=== PATIENT | female | born 1955 | race Caucasian/White ===

== ENCOUNTER 2025-05-29 12:46 | Emergency (ER) | payer MEDICARE, SELFPAY ==
--- OUTSIDE RECORDS SUMMARY | 2004-10-19 05:00 | XMS_ITS | Continuity of Care Document ---
Author Organization [facility] Address [address] [place] [address] [place] [address] Phone Care Team Providers Care Research Compliance Specialist Name Role Phone Uziel Tyson MD Unavailable Unavailable Advance Directives Directive Yes / No Effective Date File Name No Information Encounters Encounter Description Practice Location Reason(s) For Visit Diagnoses Date Provider Providers Copied on Encounter [facility], [address], [place], [place], [id number], [place] tel:[phone] [facility] [place] No Information Mar-0 8-200 5 Marbella Triplett. [address] [facility], [address], [place], [place], [id number], [place]. tel:[phone] Family History Family Member Type Diagnosis Age At Onset No Information Payers Payer name Insurance type Covered constitution party ID Authoriza tion(s) No Information Social History Type Description Quantity Date Captured Comments Sex Female Smoking Status No Information Chief Complaint And Reason For Visit No Information Reason For Referral Reason For Referral No Information History Of Present Illness Encounter Date Complaint History Of Prese nt Illness No Information Functional Status Date Functional Assessmen t No Information Instructions Date Instruction Additional Infor mation No Information Assessments Type Assessment Date No Information Patient Care Teams Name Effective Dates (start - stop) Status Members No Information
--- OUTSIDE RECORDS SUMMARY | 2004-10-19 05:00 | XMS_ITS | Continuity of Care Document ---
Author Organization [facility] Address [address] [place] [address] [place] [address] Phone Care Team Providers Care Molding Room Supervisor Name Role Phone Uziel Tyson MD Unavailable Unavailable Advance Directives Directive Yes / No Effective Date File Name No Information Encounters Encounter Description Practice Location Reason(s) For Visit Diagnoses Date Provider Providers Copied on Encounter [facility], [address], [place], [place], [id number], [place] tel:[phone] [facility] [place] No Information Mar-0 8-200 5 Marbella Triplett. [address] [facility], [address], [place], [place], [id number], [place]. tel:[phone] Family History Family Member Type Diagnosis Age At Onset No Information Payers Payer name Insurance type Covered libertarian ID Authoriza tion(s) No Information Social History [...]
--- OUTSIDE RECORDS SUMMARY | 2025-03-10 19:00 | XMS_ITS | Continuity of Care Document ---
Author Organization [facility] Address [address] [place] [address] Phone Care Team Providers Care Geological Sample Tester Name Role Phone Holland BURKS, [facility], Arik Unavailable Unavail able Procedures Procedure Date TTE W/DOPPLER, COMPLETE ELECTROCARDIOGRAM REPORT ELECTROCARDIOGRAM REPORT Advance Directives Directive Yes / No Effective Date File Name No Information Encounters Encounter Description Practice Location Reason(s) For Visit Diagnoses Date Provider Providers Copied on Encounter [facility], [address] [place] [address], [id number], tel:[phone] [facility] No Information Holland Elise. [address] [place] [address], [id number], . tel:[phone] Referring Provider: Arik Lino, [address] [place] [address], [address]. tel:[phone] [facility], [address] [place] [address], [id number], tel:[phone] [facility] No Information Jackson Villaseñor. [address] [place] [address], [id number], . tel:[phone] Referring Provider: Kasi Paz, [address] [place] [address], [address]. tel:[phone] [facility], [address] [place] [address] [place], [id number], tel:[phone] [facility] No Information Whitney Perez. [address] , [place], [place], [id number], . tel:[phone] Referring Provider: Chris Olson, [address] , [place], [address]. tel:[phone] Family History Family Member Type Diagnosis Age At Onset No Information Payers Payer name Insurance type Covered republican ID Authoriza tion(s) HUMANA CI [id number] [facility] [id number] Social History Type Description Quantity Date Captured [...]
--- OUTSIDE RECORDS SUMMARY | 2025-03-10 19:00 | XMS_ITS | Continuity of Care Document ---
Author Organization [facility] Address [address] [place] [phone] Phone Care Team Providers Care Jar Capper Name Role Phone Holland BURKS, [facility], Arik Unavailable Unavail able Procedures Procedure Date TTE W/DOPPLER, COMPLETE ELECTROCARDIOGRAM REPORT ELECTROCARDIOGRAM REPORT Advance Directives Directive Yes / No Effective Date File Name No Information Encounters Encounter Description Practice Location Reason(s) For Visit Diagnoses Date Provider Providers Copied on Encounter [facility], [address] [place] [address], [id number], tel:[phone] [facility] No Information Holland Elise. [address] [place] [address], [id number], . tel:[phone] Referring Provider: Arik Lino, [address] [place] [address], [address]. tel:[phone] [facility], [address] [place] [address], [id number], tel:[phone] [facility] No Information Jackson Villaseñor. [address] [place] [address], [id number], . tel:[phone] Referring Provider: Kasi Paz, [address] [place] [address], [address]. tel:[phone] [facility], [address] [place] [address] [place], [id number], tel:[phone] [facility] No Information Whitney Perez. [address] , [place], [place], [id number], . tel:[phone] Referring Provider: Chris Olson, [address] , [place], [address]. tel:[phone] Family History Family Member Type Diagnosis Age At Onset No Information Payers Payer name Insurance type Covered democrat ID Authoriza tion(s) HUMANA CI [id number] [facility] [id number] Social History Type Description Quantity Date Captured [...]
[2025-05-29 13:08] VITALS: BP 115/88; PULSE 84; RESP 15; TEMP 37.1; O2SAT 97
--- OUTSIDE RECORDS SUMMARY | 2025-05-29 14:19 | XMS_ITS | Clinical Summary ---
Author Organization [facility] Address [facility] [place] [address] Care Team Providers Care Sofa Back Upholsterer Name Role Phone David Richardson DO Primary Care Provider + Social History Tobacco Use Types Packs/Day Years Used Date Smoking Tobacco: Never Assessed Comments Unknown Sex and Gender Information Value Date Recorded Sex Assigned at Not on file Legal Sex Female 8:22 PM CDT Gender Identity Not on file Sexual Orientation Not on file Plan of Treatment Health Maintenance Due Date Last Done Comments Colorectal Cancer Screening Colonoscopy (10 Years) 1956 Hepatitis C 1974 DTaP, Tdap and Td Vaccines ( 1 - Tdap) 11/19/1975 Mammogram Screening 1996 Pneumococcal Vaccine: 50+ Ye ars (1 of 1 - PCV) 2006 Zoster Vaccines (1 of 2) 2006 Dexa Scan (General) 2021 COVID-19 Vaccine ( - 2023-2 5 season) 2025 Influenza Adult (#1) 2025 RSV Immunization or 60+ Years (1 - 1-dose 75+ series) 11/19/2031 Meningococcal B Vaccine Aged Out No l onger eligible based on patient's age to complete this topic Meningococcal Vaccine Aged Out No betzy keith eligible based on patient's age to complete this topic RSV Immunizations Under 20 Months Aged Out No longer eligible based on patient's age to complete this topic Care Teams Sofa Back Upholsterer Relationship Specialty Start Date End Date David Richardson DO [address] [place] [address] PCP - General FAMILY PRACTICE 9/19/23
--- OUTSIDE RECORDS SUMMARY | 2025-05-29 14:19 | XMS_ITS | Patient Health Record ---
Author Organization [facility] Address [address] [place] [address] Care Team Providers Care Astrophysics Professor Name Role Phone Scott Boyd Primary Care Provider Allergies Allergen (clinical drug ingredient) Drug/Non Drug Allergy documented on EMR Reaction Allergy Type Onset Date Status ivp dye (uncoded) hives Allergy Ac tive Reason For Referral No Information Medications Medication SIG (Take, Route, Frequency, Duration) Notes Start Date End Date Status Warfarin Sodium 7.5 MG 1 tablet Orally O nce a day 04/20/2017 Not-Taking Omeprazole 40 MG 1 capsule Orally Onc e a day; Duration: 30 days Not-Takin g hydrOXYzine HCl 25 MG 1 tablet as needed Orally every 8 hrs; Duration: 30 days Not-Taking metFORMIN HCl 500 MG 1 tablet with meals Orally Twice a day; Duration: 30 Not-Taking Omeprazole 40 MG 1 capsule Orally Onc e a day; Duration: 30 day(s) 10/16/2015 Not-Geoff ing Incruse Ellipta 62.5 MCG/INH 1 puff Inhalation Once a day; Duration: 30 Not-Taking Ranitidine HCl 150 MG 1 capsule at bedti me Orally Once a day; Duration: 30 day(s) 12/27/2016 Not-Taking Mouthwash Compounding Base - 1/3 viscous lidocaine, 1/3 liquid diphenhydramine, 1/3 mallox,30ml as directed Orally, swish and spit twice a day; Duration: 30 days 10/22/2018 Not-Taking Coumadin 7.5 MG 1 tablet Orally Once a day; Duration: 7 days Not-Taking Qvar 80 MCG/ACT 1 puff Inhalation Tw ice a day; Duration: 30 days Not-Geoff ing Ventolin HFA 108 (90 Base) MCG/ACT 2 puffs as needed Inhalation every 4 hrs; Duration: 30 days Not-Taking CeleXA 20 MG 1 tablet Orally Once a day; Duration: 30 Not-Taking Influenza Vac Split Quad 0.5 ML as directed Intramuscular Once; Duration: 1 dose 10/16/2015 Not-Taking FLUoxetine HCl 20 MG two capsules Orally Once a day; Duration: 30 Not-Taking Warfarin Sodium 5 MG two tablets Orally Once a day; Duration: 7 days 05/18/2017 Not-Taki ng Metoprolol Tartrate 25 mg 1 tablet Orally Twice a day; Duration: 30 days Not-Taksanam g Incruse Ellipta 62.5 MCG/INH 1 puff Inhalation Once a day; Duration: 30 days 08/24/2017 Not-Taksanam g Triamcinolone Acetonide 0.5 % 1 application to affected area Externally Twice a day; Duration: 14 days 04/13/2017 Not-Taking Protonix 20 MG 1 tablet Orally Once a day; Duration: 30 day(s) 02/21/2018 Not-Geoff ing Xarelto 20 MG 1 tablet with food Orally Once a day; Duration: 30 day(s) 12/16/2016 Not-Taking Albuterol Sulfate HFA 108 (90 Base) MCG/ACT 2 puffs as needed Inhalation every 4 hrs 08/31/2016 Not-Nidia g Lisinopril-hydroCHLOROth iazide 10-12.5 MG TAKE 1 TABLET BY MOUTH ONCE DAILY; Duration: 30 Not-Geoff ing Aerospan 80 MCG/ACT 2 puffs Inhalation T wice a day; Duration: 30 days 05/31/2017 Not-Geoff ing Ranitidine HCl 300 mg TAKE 1 TABLET BY M OUTH EVERY NIGHT AT BEDTIME Orally Once a day; Duration: 30 days Not-Taking Immunizations Vaccine Route Administration Date Status Comme nts Influenza, seasonal, injectable (split), for 3 yrs and up IM Intramuscular 10/16/2015 Administered Pt provided wit h VIS sheet. Pt verbalized understanding of flu vaccine. Pt tolerated well. Social History Tobacco Use: Social History Observation Description Date Details (start date - stop date) Never Smoker NA - NA Dont use, Tobacco Use/Smoking Question Answer Notes Are you a nonsmoker Section Notes: Problems Problem Type SNOMED Code ICD Code Onset Dates Problem Status W/U Status Risk Notes Problem Anxiety disorder (504506432) Anxiety disorder, unspecified (F41.9) Active confirmed Problem Palpitations (85307502) Palpitations (R00.2) Active confirmed Problem History of pulmonary embolus (668026923) Personal history of pulmonary embolism (Z86.711) Active confirmed Problem Gastroesophageal reflux disease (165464059) GERD (gastroesophageal reflux disease) (K21.9) Active confirmed Problem Depression (238852203) Depression (F32.9) 10/16/19 16 Active confirmed Problem Obesity (359945043) Obesity (E66.9) Active conf irmed Problem Hypertension (32448355) HTN (hypertension) (I10) 03/27/20 19 Active confirmed Problem Vitamin D deficiency (57756844) Vitamin D deficiency (E55.9) Active confirmed Problem Asthma (778802696) Asthma (J45.909) Active conf irmed Problem Chronic fatigue syndrome (98956871) Chronic fatigue (R53.82) Active confirmed Problem Type II diabetes mellitus without complication (212355039) Type 2 diabetes mellitus without complication, without long-term current use of insulin (E11.9) 05/17/20 17 Active confirmed Problem Increased thirst (235953357) Increased thirst (R63.1) Active confirmed Problem Long-term current use of anticoagulant (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 with INR goal of 2.0-3.0 (Z79.01) Active confirmed Plan Of Treatment Pending Test Test Name Order Date MAMMOGRAM BILAT, SCREENING 03/27/2019 MAMMOGRAM BILAT, SCREENING 10/06/2012 Insurance Providers Payer Name Payer Address Payer Phone Subscriber Number Group Number Insured Name Patient Relationship to Insured Coverage Start Date Coverage End Date [employer] Medicare [address] [address] [place] [address] [phone] [id number] Perri Anderson Self - patient is the insured 5 [facility] Attn Claims Department [address] [place] [address] [phone] [id number] Perri Anderson Self - patient is the insured 4 [facility] Attn Claims Department [address] [place] [address] [phone] Perri Anderson Self - patient is the insured 0 Medical (General) History Medical History History ICD Code Cataracts Asthma heart palpitations GERD borderline diabetes Anxiety Depression Pulmonary Embolism Surgical History Surgery Date(Month/Year) hysterectomy 2001 tonsilectomy cataract removal 2012 L posterior tibial tendon repair 1999 Hospitalization History Reason Date(Month/Year) hysterectomy childbirth Pulmonary embolism 08/2016 pulmonary embolism 03/2019
--- NOTE | 2025-05-29 14:52 | ED.ANXIETY ---
HPI - Anxiety General Chief Complaint: Anxiety <Michelle Nolasco PA-C - Last Filed: 05/29/25 18:21> Stated Complaint: ANXIETY ATTACKS X3 MONTHS <Michelle Nolasco PA-C - Last Filed: 05/29/25 18:21> Time Seen by Provider: 05/29/25 14:52 <Michelle Nolasco PA-C - Last Filed: 05/29/25 18:21> Focused HPI: This is a 69 year old female that presents to the ER for chronic crying, worsening anxiety. Ongoing over the last 3 months. No thoughts of self harm. GENERAL: Tearful, well-nourished, and in no acute distress. HEAD: Normocephalic, atraumatic. CHEST: Clear to auscultation. ?No respiratory distress. HEART: Regular rate and rhythm.? NEURO: ?Alert and oriented x3. Patient screened in triage and initial orders placed.? ?Additional care and disposition to be based upon?diagnostic testing and treatment. <Michelle Nolasco PA-C - Last Filed: 05/29/25 18:21> History of Present Illness HPI narrative: as per mse. Pt not SI or HI. <Cece Santi Izaguirre III, DO - Last Filed: 05/29/25 21:14> Related Data Allergies/Adverse Reactions: Allergies Allergy/AdvReac Type Severity Reaction Status Date / Time acetaminophen Allergy Mild Verified 10/09/09 10:14 hydrocodone Allergy Mild Verified 10/09/09 10:14 Contrast Media Allergy Mild Uncoded 10/09/09 10:14 DYE GEL Allergy Mild Uncoded 10/09/09 10:14 <OLIVER Encinas Last Filed: 05/29/25 18:21> Review of Systems Review of Systems: All systems reviewed & are unremarkable except as noted in HPI and below <Cece Santi Izaguirre III, DO - Last Filed: 05/29/25 21:14> Exam Const: General: healthy appearing and no acute distress <Cece Santi Izaguirre III, DO - Last Filed: 05/29/25 21:14> Nutritional Appearance: well nourished <Cece Santi Izaguirre III, DO - Last Filed: 05/29/25 21:14> Orientation/consciousness: patient oriented x3 <Cece Santi Izaguirre III, DO - Last Filed: 05/29/25 21:14> Limitations: no limitations <Cece Santi Izaguirre III, DO - Last Filed: 05/29/25 21:14> HENMT: Head: normal to inspection <Cece Santi Izaguirre III, DO - Last Filed: 05/29/25 21:14> Chest: Chest palpation & inspection: normal inspection of the chest <Cece Santi Izaguirre III, DO - Last Filed: 05/29/25 21:14> Resp: Effort & Inspection: normal respiratory effort <Cece Santi Izaguirre III, DO - Last Filed: 05/29/25 21:14> Auscultation: clear to auscultation bilaterally <Cece Santi Izaguirre III, DO - Last Filed: 05/29/25 21:14> Cardio: Rate: regular rate <Cece Santi Izaguirre III, DO - Last Filed: 05/29/25 21:14> Rhythm: regular rhythm <Cece Santi Izaguirre III, DO - Last Filed: 05/29/25 21:14> GI: GI Palp: Yes Soft to palpation and Yes Tenderness to palpation present (GI) <Cece Santi Izaguirre III, DO - Last Filed: 05/29/25 21:14> Auscultation: normal bowel sounds <Cece Santi Izaguirre III, DO - Last Filed: 05/29/25 21:14> Skin: General skin exam: normal color <Cece Santi Izaguirre III, DO - Last Filed: 05/29/25 21:14> Rashes: no rashes <Cece Santi Izaguirre III, DO - Last Filed: 05/29/25 21:14> Wounds: no wounds <Cece Santi Izaguirre III, DO - Last Filed: 05/29/25 21:14> Neuro: General: patient oriented x3, moves all extremities, no meningeal signs, no focal motor deficits and CN's II-XI intact bilaterally <Cece Santi Izaguirre III, DO - Last Filed: 05/29/25 21:14> Speech: normal speech <Cece Santi Izaguirre III, DO - Last Filed: 05/29/25 21:14> Extrem: General: normal to inspection and no clubbing, cyanosis or edema <Cece Santi Izaguirre III, DO - Last Filed: 05/29/25 21:14> Psych: Mental Status: mental status grossly normal <Cece Santi Izaguirre III, DO - Last Filed: 05/29/25 21:14> Affect: Sad affect present <Cece Santi Izaguirre III, DO - Last Filed: 05/29/25 21:14> Attitude: cooperative <Cece Santi Izaguirre III, DO - Last Filed: 05/29/25 21:14> Course Vital Signs Vital signs: Vital Signs Temperature 98.7 F 05/29/25 13:08 Pulse Rate 84 05/29/25 13:08 Respiratory Rate 15 05/29/25 13:08 Blood Pressure 115/88 05/29/25 13:08 Pulse Oximetry 97 05/29/25 13:08 Oxygen Delivery Room Air 05/29/25 13:08 Temperature 98.7 F 05/29/25 13:08 Pulse Rate 84 05/29/25 13:08 Respiratory Rate 15 05/29/25 13:08 Blood Pressure 115/88 05/29/25 13:08 Pulse Oximetry 97 05/29/25 13:08 Oxygen Delivery Room Air 05/29/25 13:08 <Michelle Nolasco PAMagaliC - Last Filed: 05/29/25 18:21> Vital Signs Temperature 98.7 F 05/29/25 13:08 Pulse Rate 84 05/29/25 13:08 Respiratory Rate 15 05/29/25 13:08 Blood Pressure 115/88 05/29/25 13:08 Pulse Oximetry 97 05/29/25 13:08 Oxygen Delivery Room Air 05/29/25 13:08 Temperature 98.7 F 05/29/25 13:08 Pulse Rate 84 05/29/25 13:08 Respiratory Rate 15 05/29/25 13:08 Blood Pressure 115/88 05/29/25 13:08 Pulse Oximetry 97 05/29/25 13:08 Oxygen Delivery Room Air 05/29/25 13:08 <Cece Santi Izaguirre III, DO - Last Filed: 05/29/25 21:14> MDM - Anxiety MDM Narrative Medical decision making narrative: pt depressed and frequntly crying also anxious. not SI or HI. will do screening labs and likely start on ssri and a few ativan with PCP follow up. <Cece Santi Izaguirre III, DO - Last Filed: 05/29/25 21:14> Differential Diagnosis Differential diagnosis: Likely acute anxiety and other (depression) <Cece Izaguirre III, DO - Last Filed: 05/29/25 21:14> Lab Data Result diagrams: 05/29/25 16:07 05/29/25 16:07 <Michelle Nolasco PA-C - Last Filed: 05/29/25 18:21> Labs: Lab Results 05/29/25 05/29/25 Range/Units 15:52 16:07 WBC 12.6 H (4.5-10.0) K/mm3 RBC 4.31 (4.2-5.4) M/mm3 Hgb 13.6 (12.0-15.0) g/dL Hct 41.1 (37.0-47.0) % MCV 95.4 (80-100) fl MCH 31.6 (26-34) pg MCHC 33.1 (32-36) g/dl RDW 12.2 (11.5-14.5) % Plt Count 442 H (150-375) k/mm3 MPV 9.5 (7.4-10.4) fl Immature Gran % (Auto) 0.4 (0-0.5) % Neut % (Auto) 71.5 (45.5-73.1) % Lymph % (Auto) 20.9 (18.3-44.2) % [place] % (Auto) 4.5 (2.6-8.5) % Eos % (Auto) 2.0 (0-4.4) % Baso % (Auto) 0.7 (0.2-1.2) % Lymph # (Auto) 2.63 (0.9-3.2) K/mm3 [place] # (Auto) 0.6 (0.1-0.6) K/mm3 Eos # (Auto) 0.3 (0-0.3) K/mm3 Baso # (Auto) 0.1 (0.0-0.1) K/mm3 Abs Immat Gran (auto) 0.05 H (0.00-0.031) K/mm3 Absolute Neuts (auto) 9.0 H (1.3-6.7) K/mm3 Absolute Nucleated RBC 0.000 (0.0-0.012) K/mm3 Nucleated RBC % 0.0 (0.0-0.2) % Sodium 137 (137-145) mmol/L Potassium 3.6 (3.4-5.0) mmol/L Chloride 102 (98-107) mmol/L Carbon Dioxide 24 (22-30) mmol/L Anion Gap 11 (4-12) mmol/L BUN 19 H (7-17) mg/dL Creatinine 0.88 (0.7-1.0) mg/dL Estim Creat Clear Calc Not Reportable Estimated GFR > 60 (59 - ) Glucose 108 (65-110) mg/dL Calcium 9.7 (8.4-10.2) mg/dL Total Bilirubin 0.7 (0.2-1.3) mg/dL AST 24 (14-36) U/L ALT 21 (6-35) U/L Alkaline Phosphatase 103 (38-126) U/L Total Protein 8.6 H (6.3-8.2) g/dL Albumin 4.5 (3.5-5.1) g/dL TSH (Reflex) 2.270 (0.465-4.68) uIU/mL Urine Color Yellow (Yellow) Urine Appearance Cloudy H (Clear) Urine pH >=9.0 H (5.0-9.0) Ur Specific [place] 1.011 (1.001-1.035) Urine Protein Trace (Negative) mg/dL Urine Glucose (UA) Negative (Negative) mg/dL Urine Ketones Negative (Negative) mg/dL Ur Blood (Man) Negative (Negative) Urine Nitrate Positive H (Negative) Urine Bilirubin Negative (Negative) Urine Urobilinogen 1.0 (<2.0) mg/dL Add Ur Microanalysis Reviewed Leukocyte Esterase Rfl 3+ H (Negative) MANISH/UL Urine RBC 0-2 (0-2) /hpf Urine WBC 11-20 H (0-3) /hpf Ur Squamous Epith Cells Occasional (Few) /hpf Urine Bacteria 4+ H /hpf Urine Casts 6-10 Urine Opiates Screen Negative (Negative) Urine Methadone Screen Negative (Negative) Ur Barbiturates Screen Negative (Negative) Ur Phencyclidine Scrn Negative (Negative) Ur Amphetamine Screen Negative (Negative) U Benzodiazepines Scrn Negative (Negative) Urine Cocaine Screen Negative (Negative) U Cannabinoids Screen Negative (Negative) Ethyl Alcohol < 10 (<10) mg/dL <Michelle Nolasco PA-C - Last Filed: 05/29/25 18:21> Lab Results 05/29/25 05/29/25 Range/Units 15:52 16:07 WBC 12.6 H (4.5-10.0) K/mm3 RBC 4.31 (4.2-5.4) M/mm3 Hgb 13.6 (12.0-15.0) g/dL Hct 41.1 (37.0-47.0) % MCV 95.4 (80-100) fl MCH 31.6 (26-34) pg MCHC 33.1 (32-36) g/dl RDW 12.2 (11.5-14.5) % Plt Count 442 H (150-375) k/mm3 MPV 9.5 (7.4-10.4) fl Immature Gran % (Auto) 0.4 (0-0.5) % Neut % (Auto) 71.5 (45.5-73.1) % Lymph % (Auto) 20.9 (18.3-44.2) % [place] % (Auto) 4.5 (2.6-8.5) % Eos % (Auto) 2.0 (0-4.4) % Baso % (Auto) 0.7 (0.2-1.2) % Lymph # (Auto) 2.63 (0.9-3.2) K/mm3 [place] # (Auto) 0.6 (0.1-0.6) K/mm3 Eos # (Auto) 0.3 (0-0.3) K/mm3 Baso # (Auto) 0.1 (0.0-0.1) K/mm3 Abs Immat Gran (auto) 0.05 H (0.00-0.031) K/mm3 Absolute Neuts (auto) 9.0 H (1.3-6.7) K/mm3 Absolute Nucleated RBC 0.000 (0.0-0.012) K/mm3 Nucleated RBC % 0.0 (0.0-0.2) % Sodium 137 (137-145) mmol/L Potassium 3.6 (3.4-5.0) mmol/L Chloride 102 (98-107) mmol/L Carbon Dioxide 24 (22-30) mmol/L Anion Gap 11 (4-12) mmol/L BUN 19 H (7-17) mg/dL Creatinine 0.88 (0.7-1.0) mg/dL Estim Creat Clear Calc Not Reportable Estimated GFR > 60 (59 - ) Glucose 108 (65-110) mg/dL Calcium 9.7 (8.4-10.2) mg/dL Total Bilirubin 0.7 (0.2-1.3) mg/dL AST 24 (14-36) U/L ALT 21 (6-35) U/L Alkaline Phosphatase 103 (38-126) U/L Total Protein 8.6 H (6.3-8.2) g/dL Albumin 4.5 (3.5-5.1) g/dL TSH (Reflex) 2.270 (0.465-4.68) uIU/mL Urine Color Yellow (Yellow) Urine Appearance Cloudy H (Clear) Urine pH >=9.0 H (5.0-9.0) Ur Specific [place] 1.011 (1.001-1.035) Urine Protein Trace (Negative) mg/dL Urine Glucose (UA) Negative (Negative) mg/dL Urine Ketones Negative (Negative) mg/dL Ur Blood (Man) Negative (Negative) Urine Nitrate Positive H (Negative) Urine Bilirubin Negative (Negative) Urine Urobilinogen 1.0 (<2.0) mg/dL Add Ur Microanalysis Reviewed Leukocyte Esterase Rfl 3+ H (Negative) MANISH/UL Urine RBC 0-2 (0-2) /hpf Urine WBC 11-20 H (0-3) /hpf Ur Squamous Epith Cells Occasional (Few) /hpf Urine Bacteria 4+ H /hpf Urine Casts 6-10 Urine Opiates Screen Negative (Negative) Urine Methadone Screen Negative (Negative) Ur Barbiturates Screen Negative (Negative) Ur Phencyclidine Scrn Negative (Negative) Ur Amphetamine Screen Negative (Negative) U Benzodiazepines Scrn Negative (Negative) Urine Cocaine Screen Negative (Negative) U Cannabinoids Screen Negative (Negative) Ethyl Alcohol < 10 (<10) mg/dL <Cece Izaguirre III, DO - Last Filed: 05/29/25 21:14> Critical Care Time Critical Care Time Critical Care Time: No <Michelle Nolasco PA-C - Last Filed: 05/29/25 18:21> Discharge Plan Discharge Clinical Impression: Acute anxiety Depression Qualifiers: Depression Type: unspecified Qualified Code(s): F32.A - Depression, unspecified <OLIVER Encinas Last Filed: 05/29/25 18:21> Patient Disposition: Home <OLIVER Encinas Last Filed: 05/29/25 18:21> Condition: Stable <OLIVER Encinas Last Filed: 05/29/25 18:21> Instructions: Antibiotic Form, Depression (ED), Anxiety (ED), Urinary Tract Infection in Women (DC) <OLIVER Encinas Last Filed: 05/29/25 18:21> Patient Language: Lithuanian <Michelle Nolasco PA-C - Last Filed: 05/29/25 18:21> Prescriptions: New cefdinir 300 mg capsule 300 mg PO Q12H Qty: 10 0RF paroxetine HCl [Paxil] 20 mg tablet 20 mg PO QAM Qty: 20 0RF lorazepam [Ativan] 0.5 mg tablet 0.5 mg PO BID PRN (Reason: anxiety) Qty: 14 0RF <OLIVER Encinas Last Filed: 05/29/25 18:21> Follow-up/Referrals: PHYSICIAN,WOOD SCIENCE PROFESSOR [Primary Care Provider, Internal Medicine] Tamiko Horne DO [Physician, Family Practice] <OLIVER Encinas Last Filed: 05/29/25 18:21>
[2025-05-29 16:15] LABS: Hematocrit 41.1 % (37.0-47.0); Hemoglobin 13.6 g/dL (12.0-15.0); Immature Granulocyte Percent A 0.4 % (0-0.5); Lymphocytes Absolute Auto 2.63 K/mm3 (0.9-3.2); Mean Corpuscular HGB Conc 33.1 g/dl (32-36); Mean Corpuscular Hemoglobin 31.6 pg (26-34); Mean Corpuscular Volume 95.4 fl (80-100); Nucleated Red Blood Cells Absolute Auto 0.000 K/mm3 (0.0-0.012); Nucleated Red Blood Cells Perc 0.0 % (0.0-0.2); Platelet Count Result 442 k/mm3 (150-375); Red Blood Count 4.31 M/mm3 (4.2-5.4); White Blood Count 12.6 K/mm3 (4.5-10.0)
[2025-05-29 16:22] LABS: Add Urine Microscopic? YES; Appearance Urine Cloudy (Clear); Glucose Urine UA Negative (Negative); Leukocyte Esterase Ur 3+ LEU/UL (Negative); Need Manual Microscopic Reviewed; Nitrate Urine Positive (Negative); Specific Grav Ur 1.011 (1.001-1.035)
[2025-05-29 16:37] LABS: Alanine Aminotransferase 21 U/L (6-35); Albumin Level 4.5 g/dL (3.5-5.1); Alkaline Phosphatase 103 U/L (38-126); Anion Gap 11 mmol/L (4-12); Aspartate Amino Transferase 24 U/L (14-36); Bilirubin,Total 0.7 mg/dL (0.2-1.3); Blood Urea Nitrogen 19 mg/dL (7-17); Calcium 9.7 mg/dL (8.4-10.2); Carbon Dioxide 24 mmol/L (22-30); Chloride 102 mmol/L (98-107); Estimated Glomerular Filt Rate > 60; Glucose 108 mg/dL (65-110); Potassium 3.6 mmol/L (3.4-5.0); Sodium 137 mmol/L (137-145); Total Protein 8.6 g/dL (6.3-8.2)
[2025-05-29 17:47] LABS: Cannabinoid Screen Urine Negative (Negative)
--- OUTSIDE RECORDS SUMMARY | 2025-05-29 17:58 | XMS_ITS | Clinical Summary ---
Author Organization [facility] Address [facility] [place] [address] Care Team Providers Care Apprentice Machinist Outside Name Role Phone David Richardson DO Primary [...] age to complete this topic Care Teams Apprentice Machinist Outside Relationship Specialty Start Date End Date David Richardson DO [address] [place] [id number] PCP - General FAMILY PRACTICE 9/19/23
[2025-05-29 18:01] LABS: Thyroid Stimulating Hormone Reflex 2.270 uIU/mL (0.465-4.68)
--- NOTE | 2025-05-29 18:38 | PC.NURSE ---
called [employer] for patient; $24.50 for ride home. patient advised to make certain to have a way home in the future as we cannot always assure a way home for her, patient verbalized understanding.
== END 2025-05-29 18:47 | disposition home or self-care (01) ==
PROVIDERS: Physician Assistant; Emergency Provider Emergency Medicine
DX: F41.9 Anxiety disorder, unspecified (principal); F32.A Depression, unspecified; R82.998 Other abnormal findings in urine
CPT/HCPCS: 36415; 80053; 80307; 81001; 82077; 84443; 85025; 87077; 87086; 87186; 99283